=== PATIENT | female | born 1990 | race Caucasian/White ===

== ENCOUNTER → 2017-08-16 | Outpatient (CLI) | payer OTHER ==
[2015-08-17 14:54] VITALS: BP 106/55
--- NOTE | 2017-08-16 11:31 | RAD ---
EXAM: Left breast ultrasound. HISTORY: Palpable focus medially in the left breast since breast feeding. COMPARISON: None. FINDINGS: Sonographic evaluation of the left breast was performed at the 7:00 site of concern. This reveals only dense parenchymal tissue. There is no suspicious sonographic finding. IMPRESSION: 1. BI-RADS Category 1: Negative. 2. Recommend ongoing clinical follow-up of palpable foci.
== END | disposition home or self-care (01) ==
LOC: US 10:46
PROVIDERS: ATTEND Pediatrics
DX: N63 Unspecified lump in breast (principal)
CPT/HCPCS: 76641

== ENCOUNTER 2018-02-13 18:20 | Emergency (ER) | payer BC, OTHER ==
[2018-02-13 18:42] LABS: URINE HCG POC HCG POSITIVE (Negative)
[2018-02-13] MEDS: ONDANSETRON PF 4 MG/2 ML VIAL. IV (18:45)
[2018-02-13 18:53] LABS: ADD MAN DIFF? NO
[2018-02-13 18:54] LABS: BASO # 0.1 x10^3/uL (0.0-0.2); BASO % 1 % (0-3); EOS # 0.2 x10^3/uL (0.0-0.7); EOS % 1 % (0-3); HEMATOCRIT 39.7 % (36.0-47.0); HEMOGLOBIN 13.6 g/dL (12.0-15.5); LYMPH # 1.8 x10^3/uL (1.0-4.8); LYMPH % 14 % (24-48); MEAN CORPUSCULAR HEMOGLOBIN 30 pg (25-35); MEAN CORPUSCULAR HGB CONC 34 g/dL (31-37); MEAN CORPUSCULAR VOLUME 87 fL (79-100); MONO # 0.7 x10^3/uL (0.0-1.1); MONO % 6 % (0-9); NEUT # 10.4 x10^3uL (1.8-7.7); NEUT % 79 % (31-73); PLATELET COUNT 204 x10^3/uL (140-400); RED BLOOD COUNT 4.58 x10^6/uL (3.50-5.40); RED CELL DISTRIBUTION WIDTH 13.2 % (11.5-14.5); WHITE BLOOD COUNT 13.2 x10^3/uL (4.0-11.0)
[2018-02-13 18:56] LABS: BILIRUBIN,URINE NEGATIVE (NEG); CLARITY,URINE CLEAR; GLUCOSE,URINE NEGATIVE (NEG); NITRITE,URINE NEGATIVE (NEG); PH,URINE 7.5; PROTEIN,URINE NEGATIVE (NEG-TRACE); UROBILINOGEN,URINE 0.2 mg/dL (0.2 mg/dL)
[2018-02-13] MEDS: IV NORMAL SALINE 1000ML BAG 1,000 ML IV (18:56)
[2018-02-13 19:00] LABS: COLOR,URINE STRAW
[2018-02-13 19:04] LABS: ANION GAP 11 (6-14); BLOOD UREA NITROGEN 13 mg/dL (7-20); CALCIUM 8.5 mg/dL (8.5-10.1); CARBON DIOXIDE 25 mmol/L (21-32); CHLORIDE 102 mmol/L (98-107); CREATININE 0.9 mg/dL (0.6-1.0); GFR 75.1; GLUCOSE 86 mg/dL (70-99); POTASSIUM 3.6 mmol/L (3.5-5.1); SODIUM 138 mmol/L (136-145)
[2018-02-13 19:05] LABS: BACTERIA,URINE MODERATE /HPF (0-FEW); RBC,URINE 0 /HPF (0-2); SQUAMOUS EPITHELIAL CELL,UR MOD /LPF
[2018-02-13 19:10] LABS: ALBUMIN 3.2 g/dL (3.4-5.0); ALK PHOS 45 U/L (46-116); ALT (SGPT) 17 U/L (14-59); AST (SGOT) 19 U/L (15-37); DIRECT BILIRUBIN < 0.1 mg/dL (0.0-0.2); TOTAL BILIRUBIN 0.3 mg/dL (0.2-1.0); TOTAL PROTEIN 6.8 g/dL (6.4-8.2)
[2018-02-13] MEDS: MECLIZINE HCL 12.5 MG TABLET. PO (19:15)
[2018-02-13] MEDS: NITROFURANTOIN MONOHYD/M-CRYST 100 MG CAPSULE. PO (20:36)
== END 2018-02-13 20:38 | disposition home or self-care (01) ==
LOC: ER 18:20
DX: O23.12 Infections of bladder in pregnancy, second trimester (principal); Z3A.19 19 weeks gestation of pregnancy
CPT/HCPCS: 36415; 80048; 80076; 81001; 81025; 85025; 87086; 96360; 99284-25; J7030; J8597

== ENCOUNTER 2022-01-29 14:13 | Emergency (ER) | payer BC, OTHER ==
[~2022-01-29] VITALS: Ht 154.9 cm; Wt 58.2 kg
[~2022-01-29 14:13] MED LIST: MECL-75 PO; NITR100C62 PO
[2022-01-29] MEDS ORDERED: SUMAtriptan SUCC 6 MG/0.5 ML VIAL. SQ ONE (15:00)
[2022-01-29] MEDS ORDERED: IV NORMAL SALINE 1000ML BAG 1,000 ML IV ONE (15:00)
[2022-01-29] MEDS ORDERED: KETOROLAC 15 MG/ML VIAL. IVP ONE (15:00)
[2022-01-29 15:44] LABS: BILIRUBIN,URINE NEGATIVE (NEG); CLARITY,URINE CLEAR; COLOR,URINE STRAW; NITRITE,URINE NEGATIVE (NEG); PH,URINE 8.5 (<5.0-8.0); PROTEIN,URINE NEGATIVE (NEG-TRACE); UROBILINOGEN,URINE 0.2 mg/dL (0.2 mg/dL)
[2022-01-29 15:46] LABS: BACTERIA,URINE 0 /HPF (0-FEW); RBC,URINE 0 /HPF (0-2)
[2022-01-29 16:04] LABS: PREG TEST PT QUAL NEGATIVE (NEG)
[2022-01-29] MEDS ORDERED: LORA0.5T96 PO (16:47)
[2022-01-29] MEDS ORDERED: MECL-75 PO (16:47)
--- NOTE | 2022-01-29 16:47 | PHYS DOC ---
Past Medical History Past Medical History: Other Additional Past Medical Histor: Seasonal allergies, ECTOPIC Past Surgical History: Other Additional Past Surgical Histo: Cyst L wrist, R FALLOPIAN TUBE REMOVED Smoking Status: Never Smoker Alcohol Use: Rarely Drug Use: None, Barbituate Adult General Chief Complaint Chief Complaint: DIZZY/LIGHT HEADED HPI HPI The patient is a 31-year-old female who is otherwise healthy. She presents for evaluation of acute onset of a paroxysmal room spinning disequilibrium/dizziness sensation with onset at 11 AM while she was at work at [employer]. She went to the emergency department there and was given meclizine which she states dramatically improved symptoms. She was then transferred here for further evaluation. Patient reports that as long as she holds her head still that she is not dizzy at all but that she gets to have a room spinning/disequilibrium sensation when she turns her head or moves her body. This is improved by visual fixation on a distant object. She reports associated nausea as well as a mild gradual onset bilateral frontal headache. She notes some left-sided "ear fullness" last week but states this is not present now. She denies any ear pain or tinnitus. She denies associated fevers, vomiting, focal or lateralizing weakness, numbness or tingling, neck stiffness/pain/meningismus, vision changes, recent injury or trauma to her head, shortness of breath or chest pain, abdominal pain of any kind, dysuria, hematuria, polyuria or oliguria, changes in bowel habits. Patient states that symptoms are completely identical to an episode she had a little over 3 years ago while she was . This lasted for at least a day before getting better and similarly was much improved with meclizine. She did not follow-up at that time because she never had a recurrence. Patient is alert and pleasantly and appropriately interactive and in no acute distress with completely appropriate vital signs upon initial evaluation here in the emergency department. She ambulated in with a narrow, steady, non-ataxic gait. Review of Systems Review of Systems A 12 point review of systems was completed and was negative except where noted in HPI above. Current Medications Current Medications Current Medications Medications (Trade) Dose Ordered Sig/Lawanda Start Time Stop Time Status Last Admin Dose Admin Ketorolac Tromethamine (Toradol 15mg Vial) 15 mg 1X ONCE 01/29/22 15:00 01/29/22 15:02 DC 01/29/22 15:54 15 MG Lorazepam (Ativan Inj) 0.5 mg 1X ONCE 01/29/22 15:00 01/29/22 15:02 DC 01/29/22 15:55 0.5 MG Sodium Chloride 1,000 ml @ 1,000 mls/hr 1X ONCE 01/29/22 15:00 01/29/22 15:59 DC 01/29/22 15:18 1,000 MLS/HR Sumatriptan Succinate (Imitrex) 6 mg 1X ONCE 01/29/22 15:00 01/29/22 15:02 DC Allergies Allergies Allergies Coded Allergies Type Severity Reaction Last Updated Verified No Known Drug Allergies 08/17/15 No Physical Exam Physical Exam 31-year-old female appearing nontoxic and in no acute distress. Head is normocephalic and atraumatic. Neck is supple and nontender. No neck stiffness/rigidity/meningismus seen and patient ranges her neck fully in all dimensions without discomfort or distress. Kernig's and Brudzinski's are negative. Oropharynx is moist. Tympanic membranes clear bilaterally. No EAC or mastoid process abnormalities bilaterally. Lungs are clear to auscultation at all stations. There is a normal S1 and S2 without rubs or gallops and capillary refill is appropriate, less than 2 seconds globally. Abdomen is soft, nontender and nondistended. Skin is warm and dry without cyanosis, clubbing or edema. Psychiatrically, the patient demonstrates appropriate mood and affect and is alert. Neurologically, cranial nerves II through XII are intact and there are no lateralizing deficits seen. Speech is normal. Language is normal. Coordination is normal. There is no dysmetria with [id number] or [id number]-[id number] bilaterally. Strength is 5 out of 5 in all joints of bilateral upper and lower extremities. Sensation is intact to light touch in bilateral upper and lower extremities. Patient ambulates with a narrow, steady, non- ataxic gait here in the emergency department and is alert and oriented x4. Romberg negative. No clear nystagmus is elicitable with changes in head position or extraocular movements. Current Patient Data Vital Signs Vital Signs Date Time Temp Pulse Resp B/P (MAP) Pulse Ox O2 Delivery O2 Flow Rate FiO2 01/29/22 14:14 98.5 66 18 122/75 (91) 97 Room Air 98.5 Lab Values Laboratory Tests Test 01/29/22 14:26 01/29/22 14:28 01/29/22 15:17 Urine Collection Type Unknown Urine Color Straw Urine Clarity Clear Urine pH 8.5 (<5.0-8.0) Urine Specific [place] 1.015 (1.000-1.030) Urine Protein Negative mg/dL (NEG-TRACE) Urine Glucose (UA) Negative mg/dL (NEG) Urine Ketones (Stick) Trace mg/dL (NEG) Urine Blood Negative (NEG) Urine Nitrite Negative (NEG) Urine Bilirubin Negative (NEG) Urine Urobilinogen Dipstick 0.2 mg/dL (0.2 mg/dL) Urine Leukocyte Esterase Trace (NEG) Urine RBC 0 /HPF (0-2) Urine WBC 1-4 /HPF (0-4) Urine Squamous Epithelial Cells Mod /LPF Urine Bacteria 0 /HPF (0-FEW) POC Urine HCG, Qualitative Hcg negative (Negative) Serum Test, Qualitative Negative (NEG) EKG EKG [] Radiology/Procedures Radiology/Procedures [] Course & Med Decision Making Course & Med Decision Making Well-appearing 31-year-old female presenting with symptoms of recurrent paroxysmal positional likely peripheral vertigo. No clear indication for neuroimaging today given completely nonfocal neurologic exam in this well- appearing young patient with a recurrent episode of vertigo. Patient feels much, much better after medication and fluids as per flowsheet here in the emergency department. She also received meclizine at the outside hospital prior to transfer. Symptoms almost completely resolved and patient is not symp tomatic with ambulation. Will discharge home with referrals to ENT and to neurology. Will prescribe meclizine and low-dose Ativan for use as needed for symptoms. Patient understands that if he feels worse instead of better or develops other new symptoms of concern that she should return to the emergency department immediately for reevaluation. All questions are answered. Dragon Disclaimer Dragon Disclaimer This electronic medical record was generated, in whole or in part, using a voice recognition dictation system. Departure Departure Impression: Primary Impression: Peripheral positional vertigo Disposition: HOME / SELF CARE / HOMELESS Condition: IMPROVED Referrals: EVERETTE BIRMINGHAM MD, COLLEEN N MD Patient Instructions: Vertigo Additional Instructions: Follow-up very closely with your primary care doctor in the office in the next 2 to 4 days for a reevaluation of your symptoms and a discussion of next best steps in care. We are also providing referral information for Dr. Chiquita Rangel of ENT, and to Dr. Fleming of neurology. Please call to make follow-up appointments to be seen within the next 1 week by both specialists. Drink plenty of fluids and get plenty of rest. For recurrent symptoms you may try a 25 mg meclizine pill every 6 hours as needed. You may also try a low-dose 0.5 mg Ativan pill up to twice a day for symptoms not fully controlled with meclizine alone. Be careful because Ativan in particular can make you sleepy so do not drive or work or operate machinery while taking it. Return to the emergency department right away for worsening symptoms of any kind or with any other new symptoms of concern. Scripts Lorazepam (ATIVAN) 0.5 Mg Tablet 0.5 MG PO BID PRN for dizziness for 1 Day, #6 TAB Prov: DOT DEY MD 01/29/22 Meclizine Hcl (MECLIZINE HCL) 25 Mg Tablet 1 TAB PO TID for dizziness, #20 TAB Prov: DOT DEY MD 01/29/22 Problem Qualifiers Primary Impression: Peripheral positional vertigo Laterality: unspecified laterality Qualified Codes: H81.399 - Other peripheral vertigo, unspecified ear DOT DEY MD Jan 29, 2022 16:47
[2022-01-29 17:00] VITALS: BP 99/61
--- NOTE | 2022-02-01 08:20 | EKG ---
[facility] [address] [place] [address] Test Date: 2022-01-29 Test Time: 14:35:06 Pat Name: ALIREZA CASTILLO Department: Room: Gender: F Electrical Lineworker: : 1990 Requested By: DOT DEY Order Number: [id number] Reading MD: Measurements Intervals [place] Rate: 56 P: 0 HI: 142 QRS: 78 QRSD: 78 T: 41 QT: 422 QTc: 410 Interpretive Statements SINUS RHYTHM CONSIDER RIGHT VENTRICULAR HYPERTROPHY POSSIBLY ABNORMAL ECG RI6.02 No previous ECG available for comparison
== END 2022-01-29 17:16 | disposition home or self-care (01) ==
LOC: ER 14:13
DX: H81.392 Other peripheral vertigo, left ear (principal)
CPT/HCPCS: 81001; 81025; 84703; 93005; 96361; 96374; 96375; 99284; J1885; J2060; J7030